=== PATIENT | female | born 1940 | race Caucasian/White ===

== ENCOUNTER → 2020-09-23 11:37 | Outpatient (CLI) | payer MEDICARE, SELFPAY ==
[2020-09-23 12:49] LABS: COVID19 -Nasal RAPID Negative (Negative)
== END ==
PROVIDERS: PCP Student in an Organized Health Care Education/Training Program; Visit Provider Physician Assistant
DX: Z01.812 Encounter for preprocedural laboratory examination (principal); Z20.822 Contact with and (suspected) exposure to COVID-19
CPT/HCPCS: 87635

== ENCOUNTER 2020-09-25 08:21 | Inpatient (IN) | payer MEDICARE, SELFPAY ==
[2020-09-22 08:31] VITALS: BMI 19.3
[2020-09-25] VITALS (9 sets, daily range): BP systolic 107–141; BP diastolic 65–82; PULSE 69–94; RESP 12–18; TEMP 36.1–37.4; O2SAT 96–99; BMI 19.3
--- NOTE | 2020-09-25 06:30 | DI.RAD.S_ITS ---
PROCEDURE: XR SHOULDER LT 1V INDICATIONS: Post op total shoulder TECHNIQUE: 1 view of the shoulder were acquired. COMPARISON: None. FINDINGS: Bones: Postsurgical changes compatible with left shoulder arthroplasty. Soft tissues: No suspicious soft tissue calcifications. IMPRESSION: Expected postsurgical change for left shoulder arthroplasty. Dictated by: Brigette Deluna MD, PhD on 09/26/2020 at 16:34 Approved by: Brigette Deluna MD, PhD on 09/26/2020 at 16:35
[2020-09-25] MEDS: ACETAMINOPHEN 325 MG TABLET 975 MG PO (09:27)
[2020-09-25] MEDS: PREGABALIN 75 MG CAPSULE PO (09:28)
[2020-09-25] MEDS: LACTATED RINGERS 1,000 ML 42 ML IV ×2 (09:29→11:36)
--- NOTE | 2020-09-25 09:48 | PM.PREOP ---
Pre-operative Note COVID-19 COVID-19 status: Negative Result date/Date tested (Pos, Neg/Pending): 09/23/20 Interval Note History & Physical reviewed/Exam performed by Physician: Yes Changes to H&P: No
[2020-09-25] MEDS: CEFAZOLIN 1 GM VIAL 2 GM IV (10:15)
[2020-09-25] MEDS: TRANEXAMIC ACID 1,000 MG VIAL 1000 MG INJ ×2 (10:45→11:54)
--- NOTE | 2020-09-25 10:46 | SUR.OPER ---
Beach chair with Schlein shoulder positioner. Lower body on padded OR bed. Head in foam padded head cradle, secured with straps. Non-operative arm secured <90 degrees abduction. Pillow under knees. Safety belt at thigh. Cloth tape over blanket over lower legs.
[2020-09-25] MEDS: THROMBIN (RECOMBINANT) 5,000 UNIT VIAL 5000 UNIT TOP (11:27)
[2020-09-25] MEDS: BUPIVACAINE 0.5% W/ EPI (PF) 30 ML VIAL 5 ML INJ (12:05)
--- NOTE | 2020-09-25 12:19 | PM.OP.1 ---
Operative Date/Time/Diagnoses Date of procedure: 09/25/20 Time of procedure: 12:19 Pre-op diagnosis: Left shoulder osteoarthritis Post-op diagnosis: same Procedure & Clinicians Procedure: Left total shoulder replacement Same procedure as scheduled: Yes Indications: The patient has had progressively worsening left shoulder pain with radiographic changes consistent with arthritis. Non-operative management has failed and the patient has requested total shoulder replacement. The risks, benefits and alternatives to surgery were discussed with the patient prior to proceeding. Risks discussed included, but were not limited to, failure to relieve pain, stiffness, infection, nerve damage, deep venous thrombosis, pulmonary embolism, stroke, coma, heart attack, permanent paralysis and , as well as the potential need for eventual revision of the prosthetic. Surgeon: Ranjan Young Supervisor Fishing: Rei Diaz Click Yes if Unassisted: No Anesthesia Type: General, Peripheral nerve block and Local Operative Notes Findings: Osteoporotic bone in the proximal humerus requiring short stem prosthetic. Significant biconcave glenoid which was treated by high side reaming. Closure Type: primary Specimen(s): none sent Prosthetic devices, grafts, tissues, transplants, or devices: Implants used in this procedure were manufactured by the [employer] and included an Altivate short stem total shoulder system with an all polyethylene E +46 mm pegged glenoid, a 12 mm short humeral stem with a neutral neck and a 46 x 16 mm neutral humeral head. Applied: implant(s) Estimated Blood Loss (mL): 200 Blood products transfused: none Procedure in detail: The patient was seen in the pre-operative area, where the patient identified the left shoulder as the operative site and this was marked with my initials. The patient received pre-operative antibiotics, underwent an interscalene block, and was taken to the operating room and placed on the operative table in the supine position. After satisfactory anesthesia, a full ?time out? was performed. The patient was repositioned in the ?beach chair? position using a dedicated positioner. All pressure points were well padded, and the knees were slightly bent to prevent tension on the sciatic nerves. The left arm was prepared from the fingers to the base of the neck with ChloroPrep in the usual fashion and draped through sterile drapes. An approximately 15 cm incision was created, starting at the clavicle above the coracoid process and extended towards the deltoid insertion. The deltopectoral interval was used to access the shoulder. The cephalic vein was taken laterally. A self retaining retractor was placed. The upper centimeter of the pectoralis major tendon was released. The ?three sisters? were identified and cauterized. The axillary nerve was palpated and protected throughout the case. The biceps was released from its groove and tenodesed over the top of the pectoralis major tendon. The subscapularis was released from the lesser tuberosity with a subscapularis peel and tagged for later repair. The shoulder was dislocated and a cutting guide was used for the proximal humeral osteotomy in 30 degrees of retroversion. Initially I had planned to use a stem less prosthetic so the stem was broach was placed. A proximal humeral protector was then placed. We then removed the self-retaining retractor and placed retractors to access the glenoid. The subscapularis was released with a ?360 degree release? with care being taken to protect the axillary nerve with the inferior portion of this procedure. The remnant of labrum and biceps stump were removed. The appropriate size reamer was chosen with the glenoid sizer, and the guide pin placed. The glenoid was appropriately reamed taking down the high anterior side until concentric reaming was obtained. The guide for the peripheral holes was used and the center hole enlarged. The trial glenoid was placed with good stability. We then cemented the final implant into place after irrigating the peg holes and drying them with thrombin-soaked Gelfoam. We returned our attention to the humerus, a trial humeral head was applied to the stem less broach and a trial reduction performed. During the trial reduction the stem was broached dislodged indicating the softness of the metaphyseal bone. At this point I elected to convert to a short stem. Cylindrically reamers were used until light cortical bite was obtained. Sequentially larger broaches were used until a line to line fit with the cylindrical Reamer. A trial head was then applied. Stability was checked with 50% posterior translation with spontaneous reduction, 50? external rotation at the side with the subscapularis held in the repaired position and internal rotation to in excess of 70? in the ?[place] position? period. This was felt to be satisfactory and the appropriate implants were opened. Five holes were drilled along the humeral osteotomy and #2 TiCron sutures placed for eventual subscapularis repair. The humeral prosthetic was impacted into the humerus. The humeral head was applied when the stem was still slightly proud and impacted to both seat the head and fully seat the stem. The joint was relocated one final time. The joint was irrigated and the subscapularis repaired to the previously placed sutures using Cristian-Grayson sutures. The top of the subscapularis was closed to the leading edge of the supraspinatus with a figure of 8 #2 TiCron to close the rotator interval. The deltopectoral interval was closed with interrupted 0 Vicryl. The subcutaneous layer was closed with 3-0 Vicryl, and the skin with a running 3-0 V-Lock suture and SteriStrips. An Aquacel Ag dressing was applied, the patient?s arm was placed in a sling, and the patient was taken to recovery having tolerated the procedure well. Complications: none Post-operative Condition: stable Disposition: PACU Plan for aftercare: The patient will be maintained on a standard total shoulder replacement protocol with passive range of motion limited to 90 degrees forward flexion, 0 degrees external rotation at the side, 0 degrees abduction and internal rotation to the body. The patient will receive aspirin and sequential compression devices for DVT prophylaxis. The patient will be discharged home when safe for the home environment, likely tomorrow.
[2020-09-25] MEDS: LACTATED RINGERS 1,000 ML 100 ML IV (13:55)
[2020-09-25] MEDS: OXYCODONE IR 5 MG TABLET PO (15:07)
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
--- NOTE | 2020-09-25 18:54 | PC.NURSE ---
Patient discharged to home. Patient A/Ox4, vitals stable, sensation returning to hand, pulses intact. Patient given discharge instructions and new prescriptions sent to [facility]. Patient to follow up in [address] Muñoz. IV removed, no tele. Patient had no concerns or further questions about discharge, eager to go home.
== END 2020-09-25 18:56 | disposition home or self-care (01) | DRG 483 ==
PROVIDERS: Admitting Provider Orthopaedic Surgery; PCP Student in an Organized Health Care Education/Training Program; Referring Provider Physician Assistant Medical; Visit Provider Orthopaedic Surgery
PROC: 0RRK0JZ Replacement of Left Shoulder Joint with Synthetic Substitute, Open Approach (ICD-10-PCS; CPT 23472; principal; 2020-09-25 09:30)
DX: M19.012 Primary osteoarthritis, left shoulder (principal); Z20.822 Contact with and (suspected) exposure to COVID-19
CPT/HCPCS: 73020; 87635; 97161; 97535; C1776; C9803; J0690; J1100; J2405; J2704; J3010